=== PATIENT | male | born 1975 | race Caucasian/White ===

== ENCOUNTER 2018-05-06 21:34 | Emergency (ER) | payer BC ==
[~2018-05-06] VITALS: Ht 182.9 cm; Wt 100.0 kg
[2018-05-06 21:38] VITALS: TEMP 98.1
[2018-05-06 23:35] VITALS: BP 138/82; PULSE 85
== END 2018-05-06 23:40 | disposition home or self-care (01) ==
LOC: COL.ER 21:34
DX: S61.211A Laceration without foreign body of left index finger without damage to nail, initial encounter (principal); Z23 Encounter for immunization; W26.8XXA Contact with other sharp object(s), not elsewhere classified, initial encounter; Y92.009 Unspecified place in unspecified non-institutional (private) residence as the place of occurrence of the external cause

== ENCOUNTER 2018-05-21 15:14 | Emergency (ER) | payer BC ==
[2018-05-21 15:33] VITALS: BP 142/74; PULSE 68; TEMP 97.9
== END 2018-05-21 15:33 | disposition home or self-care (01) ==
LOC: COL.ER 15:14
DX: S61.211D Laceration without foreign body of left index finger without damage to nail, subsequent encounter (principal)